=== PATIENT | female | born 1970 | race Two or more races ===

== ENCOUNTER 2025-01-16 08:59 | Emergency (ER) | payer OTHER ==
[~2025-01-16] VITALS: Ht 152.4 cm; Wt 61.2 kg
[2025-01-16] MEDS ORDERED: ZETIA10 MG PO (09:13)
[2025-01-16] MEDS ORDERED: ATORVASTATIN CA10 MG PO (09:13)
[2025-01-16] MEDS ORDERED: ACTICAL SOFTGE1 EACH PO (09:14)
[2025-01-16] MEDS ORDERED: ONDANSETRON HCL 2 MG/ML VIAL ONE (10:11)
[2025-01-16] MEDS ORDERED: KETOROLAC TROMETHAMINE 30 MG VIAL ONE (10:11)
[2025-01-16] MEDS ORDERED: 0.9 % SODIUM CHLORIDE 1,000 ML IV ONE (10:15)
[2025-01-16] MEDS ORDERED: ONDANSETRON HCL 2 MG/ML VIAL IV ONE (10:15)
[2025-01-16] MEDS ORDERED: KETOROLAC TROMETHAMINE 30 MG VIAL IU ONE (10:15)
[2025-01-16 10:38] LABS: BASO % 0.5 % (0.1-1.2); EOS # 0.08 (0.04-0.54); EOS % 0.8 % (0.7-7.0); LYMPH # 1.09 (1.18-3.74); LYMPH % 11.5 % (19.3-53.1); MEAN PLATELET VOLUME 9.50 fl (9.4-12.4); MONO # 0.50 (0.24-0.82); MONO % 5.3 % (4.7-12.5); NEUT # 7.70 (1.56-6.13); NEUT % 81.7 % (34.0-71.1); RED CELL DISTRIBUTION WIDTH 13.2 % (11.6-14.4)
[2025-01-16 11:16] LABS: BUN CREA RATIO 20.0 (7.0-25.0); CREATININE SERUM 0.99 mg/dL (0.55-1.02); GFR 58.67; GLUCOSE FASTING 126.0 mg/dL (65-100); OSMOLALITY SERUM 291.0 MOSM/KG (275-295)
[2025-01-16 11:59] LABS: URINE APPEARANCE Turbid; URINE BILIRRUBIN Negative (NEGATIVE); URINE BLOOD Small; URINE COLOR Yellow; URINE GLUCOSE Negative (NEGATIVE); URINE KETONE 15 (NEGATIVE); URINE LEUKOCYTE Negative; URINE NITRATE Negative; URINE PROTEIN Trace (NEGATIVE); URINE UROBILINOGEN 0.2 E.U./dl
[2025-01-16 12:00] LABS: URINE BACTERIA 87.6 uL (0.0-1933); URINE EPITHELIAL CELLS 11.0 uL (0.0-38.8); URINE RBC 142.2 uL (0.0-20.8); URINE WBC 33.0 uL (0.0-23.2)
[2025-01-16 12:01] LABS: URINE CAST 0.87 uL (0.0-1.40)
== END 2025-01-16 13:10 | disposition home or self-care (01) ==
LOC: ER 08:59
PROVIDERS: Emergency Medicine
DX: R10.A2 Flank pain, left side (principal); N13.39 Other hydronephrosis; N20.1 Calculus of ureter